=== PATIENT | male | born 1955 | race Caucasian/White ===

== ENCOUNTER → 2016-07-04 | Day surgery (SDC) | payer BC ==
[~2016-07-04] VITALS: Ht 167.6 cm; Wt 93.8 kg
[~2016-07-04] MED LIST: FENOFIBRATE145 MG PO; PRILOSEC20 MG PO; PRINIVIL OR ZES10 MG PO; TYLENOL EXTRA500 MG PO
== END | disposition disaster alternative care site (69) ==
LOC: GPOC 06-28 09:00 → GOPP 06-28 09:00 → GEND 07:44
PROC: 0DB58ZX Excision of Esophagus, Via Natural or Artificial Opening Endoscopic, Diagnostic (ICD-10-PCS; principal; 2016-07-04)
PROC: 0DB98ZX Excision of Duodenum, Via Natural or Artificial Opening Endoscopic, Diagnostic (ICD-10-PCS; 2016-07-04)
PROC: 0DB68ZX Excision of Stomach, Via Natural or Artificial Opening Endoscopic, Diagnostic (ICD-10-PCS; 2016-07-04)
DX: K29.70 Gastritis, unspecified, without bleeding (principal); K31.89 Other diseases of stomach and duodenum; K74.60 Unspecified cirrhosis of liver; K44.9 Diaphragmatic hernia without obstruction or gangrene; K21.9 Gastro-esophageal reflux disease without esophagitis; I10 Essential (primary) hypertension; E78.5 Hyperlipidemia, unspecified; E66.9 Obesity, unspecified; Z68.33 Body mass index [BMI] 33.0-33.9, adult; Z87.891 Personal history of nicotine dependence; Z90.49 Acquired absence of other specified parts of digestive tract; Z98.890 Other specified postprocedural states; Z79.899 Other long term (current) drug therapy
CPT/HCPCS: J2001; J7030